=== PATIENT | female | born 1980 | race Caucasian/White ===

== ENCOUNTER → 2017-03-06 15:21 | Outpatient (CLI) | payer BC ==
[2017-04-09 05:41] VITALS: BMI 34.4
== END | disposition home or self-care (01) ==
LOC: D.US 15:00
DX: R10.2 Pelvic and perineal pain (principal)

== ENCOUNTER 2017-04-09 09:04 | Day surgery (SDC) | payer BC ==
[2017-04-05 10:30] LABS: BASOPHILS 0.3 % (0-2); HEMATOCRIT 38.3 % (36.0-48.0); HEMOGLOBIN 12.6 g/dL (12-16); IMMATURE GRANULOCYTES 0.2 % (0-5); LYMPHOCYTES 48.1 % (15-50); MCH 29.9 pg (26.0-34.0); MCHC 32.9 g/dL (31.0-37.0); MCV 90.8 fL (80.0-100.0); MEAN PLATELET VOLUME 11.6 fL (7.4-10.4); NEUTROPHILS 42.4 % (40-80); RBC 4.22 10x6/uL (4.00-5.40); RDW 13.3 % (11.5-14.5); WBC 6.1 10x3/uL (4.8-10.8)
[2017-04-05 10:37] LABS: PLATELET COUNT 356 10x3/uL (130-400)
[~2017-04-09] VITALS: Ht 162.6 cm; Wt 90.7 kg
[2017-04-09 05:41] VITALS: BP 107/65; Ht 162.6 cm; Wt 90.7 kg
[2017-04-09 06:07] LABS: HCG URINE NEGATIVE (NEGATIVE)
--- NOTE | 2017-04-09 08:15 | NUR ---
DR AUSTIN ADMINISTERED PAIN BLOCK IN PACU
--- NOTE | 2017-04-10 09:02 | OP ---
PATIENT NAME: JJ BENJAMIN MEDICAL RECORD: [id number] :82 LOCATION:D.OPS ADMISSION DATE: SURGEON: OZZIE LANGSTON MD DATE OF OPERATION: 04/09/2017 PREOPERATIVE DIAGNOSES: 1. Pelvic pain. 2. Retained intrauterine device. POSTOPERATIVE DIAGNOSES: 1. Pelvic pain. 2. Suspect adenomyosis. 3. Retained intrauterine device. PROCEDURES PERFORMED: 1. Diagnostic laparoscopy. 2. Removal of impacted IUD. SURGEON: Ozzie Langston MD ANESTHESIOLOGIST: Feliberto Malone MD, [employer] INSTRUMENT REPAIRER: Ginny Desir. ANESTHETIC: General. FINDINGS: Uterus is retroverted and boggy. There is minimal adhesive disease anteriorly. There is a retraction of the posterior cul-de-sac underneath the left uterosacral ligament and above the colon. The uterus is noted to be boggy. Both ovaries and tubes were unremarkable. Vaginal vault is unremarkable. Inspissated mucus at the cervical os. The string is not present. SPECIMEN: Removed IUD. SPECIMEN DISPOSITION: Pathology. ESTIMATED BLOOD LOSS: Minimal. FLUIDS: 1100 cc of lactated Ringer's. URINE OUTPUT: Quantity sufficient prior to procedure. COMPLICATIONS: None. DRAINS: None. INDICATIONS: The patient is a 37-year-old female with intense pelvic pain and dyspareunia. The patient desires an IUD. The patient has an impacted IUD and wishes to have it removed and a new one replaced. At the time of removal, she wishes diagnostic laparoscopy to ascertain the source of pain. DESCRIPTION OF PROCEDURE: After informed consent was assured. The patient was taken to the operating room where anesthetic was obtained without difficulty. The patient is prepped and draped in the usual sterile fashion. The attention was directed to the abdomen. An incision was made and the trocar inserted. The pneumoperitoneum is developed and the assessment of the pelvis OPERATIVE REPORT [id number] JJ BENJAMIN begins. Uterus is retroverted and with the patient in Trendelenburg position. The uterus was flipped forward and the cul-de-sac viewed with the above finding. No obvious active endometriosis is seen. Ovaries and tubes are unremarkable. The uterus is noted to be boggy. What was seen of the abdominal anatomy is also unremarkable. The accessory trocars removed as the pneumoperitoneum was released. After release of the pneumoperitoneum, the primary trocar is removed. The skin is reapproximated with a subcuticular stitch and a sterile dressing applied. The legs are positioned for the vaginal portion of this case. A speculum was introduced and using Alan stone forceps, the lower segment of the uterus was explored with the IUD grasped and removed. IUD was passed to the attendant. The strings are noted to be curled up over the body. The [place] IUD is inserted after sounding the uterus and finding it to be a depth of approximately 7.5 cm. This is placed and the strings cut to approximately 3 to 3.5 cm. Sponge, lap, and needle counts correct times 2. The single tooth tenaculum that was used to study the cervix during this procedure was removed. A silver nitrate was used to cauterize the puncture sites. The patient was awakened and taken to the recovery area in stable condition. TRANSINT:[id number] Voice Confirmation ID: [id number] DOCUMENT ID: [id number] OZZIE LANGSTON MD at [id number] CC: [id number] DICTATION DATE: 04/09/17 075 [facility]: 04/09/17 0925 [facility] 04/09/17 [facility] [address] [place] [address]
== END 2017-04-09 09:55 | disposition home or self-care (01) ==
LOC: D.OPS 09:04
PROVIDERS: Obstetrics & Gynecology
DX: N85.4 Malposition of uterus (principal); T83.39XA Other mechanical complication of intrauterine contraceptive device, initial encounter; N94.10 Unspecified dyspareunia; Z01.812 Encounter for preprocedural laboratory examination

== ENCOUNTER → 2018-02-07 15:05 | Outpatient (CLI) | payer BC ==
[2017-04-09 05:41] VITALS: BMI 34.4
== END | disposition home or self-care (01) ==
LOC: D.MRI 15:05
DX: M67.961 Unspecified disorder of synovium and tendon, right lower leg (principal)